=== PATIENT | female | born 1930 | race Caucasian/White ===

== ENCOUNTER 2017-02-12 15:28 | Inpatient (IN) | payer MEDICARE ==
[2017-02-12] MEDS ORDERED: Docusate 100 MG CAP PO PRN (17:36)
[2017-02-12] MEDS ORDERED: Milk Of Magnesia 30 ML UDCUP PO PRN (17:36)
[2017-02-12] MEDS ORDERED: PROVENTIL INHALER 6.7 G (200 INHALATIONS) INH PRN (17:36)
[2017-02-12] MEDS ORDERED: Guaifenesin DM 100-10/5 ML UDCUP PO PRN (17:41)
[2017-02-12] MEDS ORDERED: Ondansetron ODT 4 MG TAB PO PRN (17:41)
[2017-02-12] MEDS ORDERED: DENOSUMAB 60 MG SQ SCH (17:45)
[2017-02-12] MEDS ORDERED: Mometasone/Formoterol 60 PUFF AER INH SCH (18:30)
[2017-02-12] MEDS ORDERED: Albuterol Sulfate 2.5 mg/3 ml Neb ONE (19:14)
[2017-02-12 19:55] LABS: Blood, Urine Negative (Negative); Glucose, Urine (Dipstick) Negative (Negative); Leukocyte Negative (Negative); Nitrite Negative (Negative); Protein, Urine (Dipstick) 30 mg/dL (Neg-Trace); Urobilinogen 0.2 mg/dL (0.2-1.0); pH, Urine 5.5 (5.0-9.0)
[2017-02-12 20:01] LABS: Clarity SL HAZY (Clear); Specific Gravity, Urine 1.027 (1.002-1.036)
[2017-02-12 20:02] LABS: Bacteria/HPF Rare-Few HPF (None Seen); Hyaline Casts/LPF 0-3 HYALINE CAST LPF (0-3 Hyaline); Icto Negative (Negative); RBC/HPF 0-3 HPF (0-3)
[2017-02-12] MEDS: Famotidine 20 MG TAB PO SCH (20:44)
[2017-02-12] MEDS: Apixaban 5 MG TAB PO SCH (20:44)
[2017-02-12] MEDS: Latanoprost 0.005% Ophth Soln 2.5 ml Bottle EA EYE SCH (20:51)
[2017-02-12] MEDS ORDERED: Furosemide 20 MG TAB PO SCH (21:00)
[2017-02-12] MEDS: Acetaminophen 325 MG TAB PO PRN (21:32)
--- NOTE | 2017-02-13 00:46 | HP ---
DATE OF ADMISSION: 02/12/2017 HISTORY OF PRESENT ILLNESS: The patient is an 86-year-old white female with severe COPD, has had mu ltiple episodes of increasing weakness and falling down spells. She got much weaker and eventually was evaluated by primary care doctor and felt that she would benefit from physical therapy and occup ational therapy and in an intensive inpatient setting. PAST MEDICAL HISTORY: Positive for atrial fibrillation, hypertension, COPD, osteoporosis, arthritis , coronary artery disease, congestive heart failure, pain management, and generalized weakness. PAST SURGICAL HISTORY: Positive for right hip fracture about 25 years ago and then recently left hi p ORIF. The patient also had kyphoplasty x3. FAMILY HISTORY: Reveals that patient's father of pneumonia and the patient's mother at ag e 89 of a stroke. She had one brother that has cancer. She has no sisters. She has 2 daughters th at are healthy. Family history is positive for heart disease, hypertension, and diabetes. SOCIAL HISTORY: Reveals the patient does not smoke, does not drink alcohol, does not do any drugs. She exercises regularly. She lives with her and had secondary smoke. She is . She is retired. REVIEW OF SYSTEMS: Reveals patient has good appetite, although she is thin. She has increasing fat igue and malaise, but denies fever, chills, night sweats, and pain. She complains of dry skin. THAD NT: Reveals that the patient did state that she has decreased hearing and decreased vision. She de nies any headaches or vertigo. Respiratory ahumada, the patient complains of shortness of breath and d yspnea on exertion. She has no significant cough. She has no significant wheezing. She denies any chest pain, syncope, edema, or palpitations. She does have atrial fibrillation, but she rarely fee ls that. She denies any nausea, vomiting, indigestion, or diarrhea. She does have constipation. S he does complain of arthralgias, mainly in her back and her hands and sometimes she is very achy. S he does have some stress in the past and has had some anxiousness. She does bruises very easily and has multiple bruises all over her body from her falls. PRESENT MEDICATIONS: Include the followin. Eliquis 2.5 mg b.i.d. 2. Diltiazem 240 mg daily. 3. Lasix 20 mg b.i.d. 4. Klor-Con 10 mg b.i.d. 5. Celebrex 200 mg daily. 6. Cymbalta 30 mg daily. 7. Prolia 60 mg subcu every 6 months. 8. Travatan 1 drop in each eye every evening. 9. Tramadol 50 one half or one every 4 hours p.r.n. 10. Symbicort 160/4.5 two puffs b.i.d. 11. ProAir 2 puffs every 6 hours p.r.n. 12. MiraLax every day. 13. Vitamin D every day. 14. Multivitamin daily. 15. Caltrate plus vitamin D daily. ALLERGIES: The patient is allergic to PREGABALIN. PHYSICAL EXAMINATION: GENERAL: This is a well-developed, well-nourished, very pleasant white female, in no apparent distr ess at this time. VITAL SIGNS: Blood pressure on admission was 165/86, pulse 88, respirations 22, temperature 96.6. Her weight is 106 pounds. HEENT: Reveals normocephalic, nontraumatic cranium. Pupils are equally round and reactive. Extrao cular movements are intact. Nose and throat are slightly dry. NECK: Supple without masses, nodes, or bruits. LUNGS: Chest is clear, but distant. No rales, no rhonchi, no wheezes are heard. No crackles are h eard. HEART: Reveals an irregularly irregular rate and rhythm without murmurs, gallops, or rubs. ABDOMEN: Soft, nontender, without organomegaly. Normal bowel sounds are noted. No rebound or guar ding is noted. GENITOURINARY EXAM: Deferred. EXTREMITIES: Reveal generalized weakness with very poor balance and multiple bruising and scarring on her upper and lower extremities. NEUROLOGIC: The patient is intact. The patient is oriented to person, place, time, and situation. Her mood and affect are normal. ASSESSMENT: 1. Atrial fibrillation. 2. Chronic obstructive pulmonary disease. 3. Hypertension. 4. Osteoporosis. 5. Arthritis. 6. Coronary artery disease. 7. History of congestive heart failure. 8. Pain management. 9. Osteoporosis. PLAN: 1. Continue to follow the patient's rate, make sure she stays rate controlled. 2. Follow the patient's respiratory status. 3. Continue to follow the patient's blood pressure closely. 4. Continue physical therapy and occupational therapy. 5. Continue DVT and stress ulcer prophylaxis. 6. Continue decubitus precautions.
[2017-02-13] MEDS: traMADol HCl 50 MG TAB PO PRN ×3 (04:01→18:32)
[2017-02-13 05:11] LABS: #Monocytes 1.6 thou/uL (0.11-0.59); %Basophils 0.3 % (0.0-1.0); %Lymphocytes 6.7 % (21.0-51.0); %Monocytes 11.1 % (0.0-10.0); %Neutrophils 81.9 % (42.0-75.0); Hemoglobin 11.6 g/dL (12.0-16.0); Mean Corpuscular HGB CONC 33.6 g/dL (32.0-36.0); Mean Corpuscular Hemoglobin 32.7 pg (27.0-31.0); Mean Corpuscular Volume 97.2 fl (81.0-99.0); Mean Platelet Volume 6.7 fL (7.4-10.4); Platelet Count 276 thou/uL (130-400); RBC Distribution Width 14.2 % (11.5-14.5); Red Blood Cell (RBC) Count 3.55 mill/uL (4.20-5.40); White Blood Cell (WBC) Count 14.6 thou/uL (4.8-10.8)
[2017-02-13 05:31] LABS: ALT (SGPT) 38 U/L (8-55); AST (SGOT) 45 U/L (5-34); Albumin 3.6 g/dL (3.4-4.8); Alkaline Phosphatase 67 U/L (40-150); Anion Gap 14 mmol/L (10-20); BUN (Urea Nitrogen) 23 mg/dL (9.8-20.1); Bilirubin, Total 0.8 mg/dL (0.2-1.2); Calc. Creatinine Clearance 31 mL/min (70-130); Calcium 8.3 mg/dL (7.8-10.44); Carbon Dioxide 32 mmol/L (23-31); Chloride 94 mmol/L (98-107); Estimated GFR-MDRD 56; Globulin 3.1 g/dL (2.4-3.5); Glucose 103 mg/dL (83-110); Potassium 3.9 mmol/L (3.5-5.1); Protein, Total 6.7 g/dL (6.0-8.3); Sodium 136 mmol/L (136-145)
[2017-02-13] MEDS: Mometasone/Formoterol 60 PUFF AER INH SCH ×2 (06:14→18:18)
[2017-02-13] MEDS: Furosemide 20 MG TAB PO SCH ×2 (06:14→13:03)
[2017-02-13] MEDS ORDERED: Mometasone/Formoterol 60 PUFF AER INH SCH (06:30)
[2017-02-13] MEDS: CeleCOXIB 100 MG CAP PO SCH (08:08)
[2017-02-13] MEDS: Potassium Chloride 10 MEQ TAB PO SCH ×2 (08:08→16:54)
[2017-02-13] MEDS: Apixaban 5 MG TAB PO SCH ×2 (08:10→21:15)
[2017-02-13] MEDS: Multivitamin W/ Minerals 1 TAB PO SCH (08:10)
[2017-02-13] MEDS: Calcium Carbonate + Vit D 1 TAB PO SCH (08:10)
[2017-02-13] MEDS: Famotidine 20 MG TAB PO SCH ×2 (08:11→21:15)
[2017-02-13] MEDS: Acetaminophen 325 MG TAB PO PRN (13:02)
[2017-02-13] MEDS: Polyethylene Glycol 3350 17 GM Packet PO PRN (13:03)
[2017-02-13] MEDS: Latanoprost 0.005% Ophth Soln 2.5 ml Bottle EA EYE SCH (21:14)
[2017-02-14] MEDS: traMADol HCl 50 MG TAB PO PRN ×3 (01:13→21:13)
--- NOTE | 2017-02-14 01:40 | PRG ---
DATE OF SERVICE: 02/13/2017 HISTORY OF PRESENT ILLNESS: Mrs. Goodman is a very pleasant 86-year-old white female, who has COPD. She has had significant increase in her weakness and has had multiple falling down spells. She carlson s multiple bruises all over. She was seen by primary care doctor and her orthopedist and felt that she would benefit from physical therapy and occupational therapy in the intensive inpatient setting. She was transferred here and arrived here yesterday afternoon and was evaluated. She has had some therapy today and states she is very weak and she still has significant balance problems. She has n o complaints today. PHYSICAL EXAMINATION: VITAL SIGNS: Revealed, blood pressure 120/61, pulse 80-170, respirations 18-20, O2 sat 95 on room a ir, 100% on 2 liters, temperature 96.6. GENERAL: This is a well-developed, well-nourished, pleasant white female in no apparent distress at this time. HEENT: Reveals normocephalic, nontraumatic cranium. Pupils are equally round and reactive. Extrao cular movements intact. Nose and throat are slightly dry. NECK: Supple, without masses, nodes or bruits. LUNGS: Chest is clear, but shallow and distant. No rales, rhonchi or wheezes are heard. No crackl es are heard. HEART: Reveals an irregularly irregular rate and rhythm without murmurs, gallops or rubs. ABDOMEN: Soft, slightly obese, nontender without organomegaly, normal bowel sounds are noted. No r ebound or guarding is noted. GENITOURINARY: Deferred. EXTREMITIES: Generalized weakness. The patient continues to have very poor balance and has multipl e bruising over her upper and lower extremities. NEUROLOGIC: The patient is intact, but she has significant balance problems. She is oriented to pe rson, place, time, and situation. Her mood and affect are still normal. IMPRESSION: 1. Atrial fibrillation. 2. Chronic obstructive pulmonary disease. 3. Hypertension. 4. Osteoporosis. 5. Arthritis. 6. Coronary artery disease. 7. Congestive heart failure. 8. Pain management. 9. Osteoporosis. 10. Generalized weakness. PLAN: 1. Continue to follow the patient's rate, make sure she stays rate controlled. 2. Continue to follow the patient's respiratory status. 3. Follow the patient's blood pressure closely. 4. Continue physical therapy and occupational therapy. 5. Continue DVT and stress ulcer prophylaxis. 6. Continue decubitus precautions.
[2017-02-14] MEDS: Acetaminophen 325 MG TAB PO PRN ×4 (02:57→21:14)
[2017-02-14] MEDS: Furosemide 20 MG TAB PO SCH ×2 (06:13→14:11)
[2017-02-14] MEDS: Mometasone/Formoterol 60 PUFF AER INH SCH ×2 (06:14→17:50)
[2017-02-14] MEDS: Potassium Chloride 10 MEQ TAB PO SCH ×2 (07:43→17:05)
[2017-02-14] MEDS: CeleCOXIB 100 MG CAP PO SCH (08:27)
[2017-02-14] MEDS: Apixaban 5 MG TAB PO SCH ×2 (08:28→19:54)
[2017-02-14] MEDS: Famotidine 20 MG TAB PO SCH ×2 (08:29→19:55)
[2017-02-14] MEDS: Calcium Carbonate + Vit D 1 TAB PO SCH (08:31)
[2017-02-14] MEDS: Multivitamin W/ Minerals 1 TAB PO SCH (08:31)
[2017-02-14] MEDS: Polyethylene Glycol 3350 17 GM Packet PO PRN (11:53)
[2017-02-14 13:04] VITALS: BMI 20.7
[2017-02-14] MEDS ORDERED: Bisacodyl 10 MG SUPP PR PRN (16:59)
--- NOTE | 2017-02-14 17:29 | PRG ---
DATE OF ADMISSION: 02/12/2017 DATE OF PROGRESS NOTE: 02/14/2017 HISTORY OF PRESENT ILLNESS: The patient is an 86-year-old white female that has had increasing weak nesses and multiple falls recently. She also has chronic endstage COPD. She has multiple bruises f rom all her falling. She was seen by her primary care doctor and orthopedist and felt that she woul d benefit from inpatient physical therapy and occupational therapy, so she was transferred to [facility]. Since she has been here, she has been taking pain medications before she got here. She is having some problems with constipation and obstipation. We have tried MiraLax and mi lk of magnesia and that has not helped so far and we will try a Dulcolax suppository and possible en tiffany if needed. The patient has no other complaints except for her abdominal pain from constipation. PHYSICAL EXAMINATION: VITAL SIGNS: Revealed blood pressure is 137/82, pulse 121, respirations 19-20, O2 sat 96% on room a ir. T-max is 97.7. GENERAL: This is a well-developed, well-nourished, very pleasant white female in no apparent distre ss at this time. HEENT: Reveals normocephalic, nontraumatic cranium. Pupils are equally round and reactive. Extrao cular movements intact. Nose and throat are slightly dry. NECK: Supple without masses, nodes or bruits. LUNGS: Chest is shallow and distant breath sounds. No rales, rhonchi or wheezes are heard. No aircraft engine mechanic overhaul ckles are heard. CARDIOVASCULAR: Reveals an irregularly irregular rate and rhythm without murmurs, gallops or rubs. ABDOMEN: Slightly distended, soft, tender all over, but normal bowel sounds are noted, but slow. N o rebound or guarding is noted. Patient has kind of diffuse achiness all over most likely from bein g distended and constipated. : Deferred. EXTREMITIES: Revealed generalized weakness. The patient did walk this morning. Her bruising is sl owly getting better. She has generalized weakness in upper and lower extremities. NEUROLOGIC: The patient is intact, but she continues to have balance problems. She is oriented to person, place, time, and situation. Her mood and affect are normal. IMPRESSION: 1. Atrial fibrillation. 2. Constipation. 3. Chronic obstructive pulmonary disease. 4. Hypertension. 5. Osteoporosis. 6. Arthritis. 7. Coronary artery disease. 8. Congestive heart failure. 9. Pain management. 10. Osteoporosis. 11. Generalized weakness. PLAN: 1. We will continue to follow the patient's heart rate and make sure she stays rate controlled. 2. Follow up patient's respiratory status. 3. We will try Dulcolax suppository along with MiraLax and milk of magnesia. 4. Continue physical therapy and occupational therapy. 5. Continue DVT and stress ulcer prophylaxis. 6. Continue decubitus precautions.
[2017-02-14] MEDS: Milk Of Magnesia 30 ML UDCUP PO SCH (19:54)
[2017-02-14] MEDS: Latanoprost 0.005% Ophth Soln 2.5 ml Bottle EA EYE SCH (19:55)
[2017-02-15] MEDS: Furosemide 20 MG TAB PO SCH ×2 (06:22→14:53)
[2017-02-15] MEDS: Mometasone/Formoterol 60 PUFF AER INH SCH ×2 (06:23→19:08)
[2017-02-15] MEDS: Calcium Carbonate + Vit D 1 TAB PO SCH (08:47)
[2017-02-15] MEDS: Apixaban 5 MG TAB PO SCH ×2 (08:47→20:47)
[2017-02-15] MEDS: CeleCOXIB 100 MG CAP PO SCH (08:47)
[2017-02-15] MEDS: Potassium Chloride 10 MEQ TAB PO SCH ×2 (08:48→17:15)
[2017-02-15] MEDS: Multivitamin W/ Minerals 1 TAB PO SCH (08:48)
[2017-02-15] MEDS: Famotidine 20 MG TAB PO SCH ×2 (08:48→20:47)
[2017-02-15] MEDS: Polyethylene Glycol 3350 17 GM Packet PO PRN (08:49)
--- NOTE | 2017-02-15 10:24 | PRG ---
DATE OF SERVICE: 02/15/2017 SUBJECTIVE: Ms. Goodman is a very pleasant 86-year-old white female that had end-stage COPD and A Fib with Hx of CHF. She has had multiple falls mainly from her weakness and bruising. She was seen by primary care doctor and Orthopedics felt that she would benefit to inpatient physical therapy and occupational therapy. She was transferred to [facility] swing bed. She has been here and seems to be doing fairly well. This morning, they had difficulty getting oxygen saturation. She is a little bit confused this morning. She has been somewhat constipated and obstipated. This morning, she states that someone in the family and thus they are going to have a . I have to check that with her granddaughter Bob. OBJECTIVE: VITAL SIGNS: Today reveal blood pressure 158/94, which is a little high. Last night, it was 139/80. Pulse 100-140 this morning. Respirations 20-24. O2 sat 92%. GENERAL: This is a well-developed, well-nourished, very pleasant white female in no apparent distress at this time. HEENT: Reveals normocephalic, nontraumatic cranium. Pupils equal, round, and reactive. Extraocular movements intact. Nose and throat are slightly dry. NECK: Supple, without masses, nodes or bruits. CHEST: Clear to auscultation. No rales, no rhonchi, no wheezes are heard. Chest sounds are very distant. No crackles were heard this AM. HEART: Reveals a irregularly irregular rate and rhythm. ABDOMEN: Slightly distended, but less tender. Patient complains of diffuse achiness across her shoulders and ribs. GENITOURINARY: Deferred. EXTREMITIES: Reveals generalized weakness. The patient has not had therapy yet this morning. NEUROLOGIC: She is intact, but she continues to have balance problems and this morning seems a little bit confused. IMPRESSION: 1. CHF 2. Atrial fibrillation. 3. Constipation. 4. Chronic obstructive pulmonary disease, end-stage. 5. Hypertension. 6. Osteoporosis. 7. Arthritis. 8. Coronary artery disease. 9. History of congestive heart failure. 10. Pain management. 11. Generalized weakness. 12. Confusion PLAN: 1. Follow for sign's and symptoms of CHF 2. Follow up the patient's respiratory status. 3. Continue physical therapy and occupational therapy. 4. Continue deep venous thrombosis and stress ulcer prophylaxis. 5. Continue decubitus precautions. 6. Urinalysis. 7. Cardiac echo. 8. Follow Rate and rhythm and make sure she stays rate controlled. 9. Will discuss with Grand-daughter and daughter. TIARA
[2017-02-15] MEDS: Acetaminophen 325 MG TAB PO PRN (11:50)
[2017-02-15 12:12] LABS: ALT (SGPT) 32 U/L (8-55); AST (SGOT) 28 U/L (5-34); Albumin 3.4 g/dL (3.4-4.8); Alkaline Phosphatase 87 U/L (40-150); Anion Gap 19 mmol/L (10-20); BUN (Urea Nitrogen) 30 mg/dL (9.8-20.1); Bilirubin, Total 1.2 mg/dL (0.2-1.2); Calc. Creatinine Clearance 29 mL/min (70-130); Calcium 10.7 mg/dL (7.8-10.44); Carbon Dioxide 31 mmol/L (23-31); Chloride 89 mmol/L (98-107); Estimated GFR-MDRD 51; Globulin 3.7 g/dL (2.4-3.5); Glucose 119 mg/dL (83-110); Potassium 4.9 mmol/L (3.5-5.1); Protein, Total 7.1 g/dL (6.0-8.3); Sodium 134 mmol/L (136-145)
[2017-02-15 14:07] LABS: Band 8 % (5-11); Blast 2 % (0-0); Eosinophils 2 % (0-10); Hemoglobin 13.1 g/dL (12.0-16.0); Lymphocytes 9 % (21-51); MDiff Complete? YES; Mean Corpuscular HGB CONC 32.2 g/dL (32.0-36.0); Mean Corpuscular Hemoglobin 31.9 pg (27.0-31.0); Mean Platelet Volume 6.6 fL (7.4-10.4); Monocytes 5 % (0-10); Neutrophil 74 % (42-75); PLT Morphology Comment Appears Adequate; Platelet Count 280 thou/uL (130-400); RBC Distribution Width 15.2 % (11.5-14.5)
--- NOTE | 2017-02-15 17:20 | RAD ---
CHEST ONE VIEW: History: Shortness of breath. Comparison: Chest two views, 2015. FINDINGS: Heart size is enlarged. There are layering effusions bilaterally, slightly increased in size from co mparison exam. Nodular opacities in the right lung apex are similar. There is extensive degenerative disease throughout the thoracic spine with multiple areas of what ap pears to be cement. Old posterolateral left fourth rib fracture. IMPRESSION: Cardiomegaly with effusions and mild pulmonary venous congestion. This is worsened from the 2015 exa m. POS: [facility]
[2017-02-15] MEDS ORDERED: Sodium Chloride 0.9% 20 ML ONE (18:50)
[2017-02-15] MEDS ORDERED: Furosemide 40 MG/4 ML VIAL SLOW IVP SCH (19:15)
[2017-02-15 19:21] LABS: Bilirubin Negative (Negative); Blood, Urine Negative (Negative); Clarity SL HAZY (Clear); Glucose, Urine (Dipstick) Negative (Negative); Leukocyte Negative (Negative); Nitrite Negative (Negative); Protein, Urine (Dipstick) 30 mg/dL (Neg-Trace); Urobilinogen 0.2 mg/dL (0.2-1.0); pH, Urine 5.5 (5.0-9.0)
[2017-02-15] MEDS: Milk Of Magnesia 30 ML UDCUP PO SCH (20:47)
[2017-02-15] MEDS: Latanoprost 0.005% Ophth Soln 2.5 ml Bottle EA EYE SCH (20:48)
[2017-02-15 22:08] LABS: RBC/HPF 0-3 HPF (0-3); Renal Epithelial 0-3 HPF (0-3); Squamous Epithelial 0-3 HPF (0-3); Transitional Epithelial 0-3 HPF (0-3); WBC/HPF 0-3 HPF (0-3)
[2017-02-16 05:18] LABS: Band 5 % (5-11); Hemoglobin 12.9 g/dL (12.0-16.0); Lymphocytes 3 % (21-51); MDiff Complete? YES; Mean Corpuscular HGB CONC 33.2 g/dL (32.0-36.0); Mean Corpuscular Hemoglobin 32.3 pg (27.0-31.0); Mean Corpuscular Volume 97.5 fl (81.0-99.0); Mean Platelet Volume 7.2 fL (7.4-10.4); Monocytes 6 % (0-10); Neutrophil 86 % (42-75); PLT Morphology Comment Appears Adequate; Platelet Count 269 thou/uL (130-400); RBC Distribution Width 14.9 % (11.5-14.5); RBC Morphology Normal; Red Blood Cell (RBC) Count 3.98 mill/uL (4.20-5.40); White Blood Cell (WBC) Count 20.5 thou/uL (4.8-10.8)
[2017-02-16 05:24] LABS: Anion Gap 18 mmol/L (10-20); BUN (Urea Nitrogen) 37 mg/dL (9.8-20.1); Calc. Creatinine Clearance 28 mL/min (70-130); Calcium 9.5 mg/dL (7.8-10.44); Carbon Dioxide 32 mmol/L (23-31); Chloride 89 mmol/L (98-107); Estimated GFR-MDRD 49; Glucose 123 mg/dL (83-110); Potassium 4.8 mmol/L (3.5-5.1); Sodium 134 mmol/L (136-145)
[2017-02-16] MEDS: Furosemide 40 MG TAB PO SCH ×2 (06:19→13:37)
[2017-02-16] MEDS: Mometasone/Formoterol 60 PUFF AER INH SCH ×2 (06:28→18:00)
[2017-02-16] MEDS: Potassium Chloride 10 MEQ TAB PO SCH ×2 (08:27→16:53)
[2017-02-16] MEDS: Apixaban 5 MG TAB PO SCH ×2 (08:27→20:21)
[2017-02-16] MEDS: CeleCOXIB 100 MG CAP PO SCH (08:28)
[2017-02-16] MEDS: Calcium Carbonate + Vit D 1 TAB PO SCH (08:28)
[2017-02-16] MEDS: Famotidine 20 MG TAB PO SCH ×2 (08:29→20:21)
[2017-02-16] MEDS: Multivitamin W/ Minerals 1 TAB PO SCH (08:30)
[2017-02-16] MEDS: Acetaminophen 325 MG TAB PO PRN ×2 (08:30→20:21)
[2017-02-16] MEDS ORDERED: Carvedilol 3.125 MG TAB PO SCH (09:30)
[2017-02-16] MEDS: Carvedilol 3.125 MG TAB PO SCH ×2 (09:59→16:53)
--- NOTE | 2017-02-16 10:34 | PRG ---
DATE OF SERVICE: 02/16/2017 DATE OF ADMISSION: 02/12/2017 HISTORY OF PRESENT ILLNESS: Ms. Goodman is still confused this morning, but little less than yesterday. She does not hear anything this morning yet because she does not have her hearing aids in. They talked with the patient's granddaughter Marissa and Marissa thought she is a little bit more coherent this morning. I did talk with the daughter yesterday and she will be coming up this morning. The patient is presently getting her echocardiogram. We will get Dr. Busby to read it and ir should be available later on today. Patient according to nurses was able to rest a little bit last night, but still is somewhat restless. OBJECTIVE: VITAL SIGNS: This morning reveal blood pressure was 153/73, pulse is 77 this morning, it was 100 earlier this morning. Respirations are 20-24, O2 sat is 93% -97% on 2 to 2-1/2 liters. This morning GENERAL APPEARANCE: This morning on physical exam, this is a well-developed, well-nourished, thin white female, in no apparent distress at this time. She is still slightly confused, but is less so. She is having less respiratory distress this morning. She has no complaints of chest pain. Presently, she is undergoing echocardiogram. She has no significant edema in lower extremities. X-RAY FINDINGS: Chest x-ray yesterday reveals some vascular congestion, so she was given IV 40 Lasix last night with 400 out plus 2 wet diapers. The patient seems to be somewhat clear this morning with less crackles. LABORATORY DATA: This morning reveals her white count was 20,500 which was down from 26,000 the day before. Her hemoglobin is 12.9, hematocrit 38.8. Sodium is 134, potassium 4.8 with chloride of 89, CO2 of 32, BUN is 37, and creatinine is 1.06. GFR is 49. Sugar this morning was 123. We did repeat another urinalysis yesterday, which was unremarkable. Chest x-ray did not reveal any infectious process is going on. ASSESSMENT: 1. Congestive heart failure, acute exacerbation. 2. Atrial fibrillation. 3. History of chronic obstructive pulmonary disease, end-stage. 4. Hypertension. 5. Coronary artery disease. 6. Generalized weakness. 7. Confusion. 8. Arthritis. 9. Osteoporosis. 10. Atrial fibrillation. 11. Constipation. 12. Glaucoma. PLAN: 1. Continue to treat her congestive heart failure. We have instituted Lasix 40 b.i.d. and will continue have to follow her BUN and creatinine for that. Also, started a low dose of carvedilol to make sure she stays rate control and hopefully increase her cardiac output. 2. Continue to follow the patient's respiratory status closely. 3. Continue physical therapy and occupational therapy. 4. Continue DVT and stress ulcer prophylaxis. 5. Continue decubitus precautions. 6. Urinalysis, unremarkable. 7. Awaiting results from the echo. 8. Continue to follow the patient's rate and rhythm. Make sure she stays rate controlled, were discussed with the daughter and granddaughter this afternoon. Continue to follow her closely. 9. Hopefully, get her echocardiogram back later this afternoon. TIARA
[2017-02-16 10:57] LABS: CKMB 3.4 ng/mL (0-6.6); Troponin I 0.018 ng/mL (< 0.028)
[2017-02-16] MEDS: Milk Of Magnesia 30 ML UDCUP PO SCH (20:21)
[2017-02-16] MEDS: Latanoprost 0.005% Ophth Soln 2.5 ml Bottle EA EYE SCH (20:30)
[2017-02-17 05:51] LABS: Anion Gap 18 mmol/L (10-20); BUN (Urea Nitrogen) 39 mg/dL (9.8-20.1); Calc. Creatinine Clearance 33 mL/min (70-130); Calcium 9.3 mg/dL (7.8-10.44); Carbon Dioxide 32 mmol/L (23-31); Chloride 90 mmol/L (98-107); Estimated GFR-MDRD 59; Glucose 121 mg/dL (83-110); Potassium 4.3 mmol/L (3.5-5.1); Sodium 136 mmol/L (136-145)
[2017-02-17] MEDS: Furosemide 40 MG TAB PO SCH (06:10)
[2017-02-17 06:16] LABS: Band 45 % (5-11); Eosinophils 1 % (0-10); Hemoglobin 12.8 g/dL (12.0-16.0); Lymphocytes 5 % (21-51); MDiff Complete? YES; Mean Corpuscular HGB CONC 32.6 g/dL (32.0-36.0); Mean Corpuscular Hemoglobin 31.1 pg (27.0-31.0); Mean Corpuscular Volume 95.6 fl (81.0-99.0); Mean Platelet Volume 6.6 fL (7.4-10.4); Monocytes 1 % (0-10); Neutrophil 48 % (42-75); PLT Morphology Comment Appears Adequate; Platelet Count 217 thou/uL (130-400); RBC Distribution Width 14.6 % (11.5-14.5); RBC Morphology Normal; Red Blood Cell (RBC) Count 4.12 mill/uL (4.20-5.40)
[2017-02-17] MEDS: Mometasone/Formoterol 60 PUFF AER INH SCH (06:30)
[2017-02-17 07:03] VITALS: BP 130/76
[2017-02-17] MEDS: Carvedilol 3.125 MG TAB PO SCH (07:49)
[2017-02-17] MEDS: Potassium Chloride 10 MEQ TAB PO SCH (07:50)
[2017-02-17] MEDS: CeleCOXIB 100 MG CAP PO SCH (08:33)
[2017-02-17] MEDS: Famotidine 20 MG TAB PO SCH (08:33)
[2017-02-17] MEDS: Multivitamin W/ Minerals 1 TAB PO SCH (08:33)
[2017-02-17] MEDS: Calcium Carbonate + Vit D 1 TAB PO SCH (08:34)
[2017-02-17] MEDS: Apixaban 5 MG TAB PO SCH (08:34)
[2017-02-17 09:58] VITALS: TEMP 97
--- NOTE | 2017-02-17 19:24 | DIS ---
DATE OF ADMISSION: 02/12/2017 DATE OF DISCHARGE: Transferred to swing bed, 02/17/2017 HOSPITAL COURSE: Ms. Clover Goodman is a very pleasant 86-year-old white female with severe CO PD, extreme weakness and multiple falls. She would brought here and was found to have atrial fibril lation, COPD, hypertension with hypotension, generalized weakness, osteoporosis, arthritis, CAD and CHF. She was admitted to the hospital, actually was stabilized. She has had significant decline si nce she got here and is much improved now. She did have an echocardiogram, which revealed mildly enlarged right ventricle cavity, moderately di lated left atrium, moderate to severe tricuspid regurg and moderate to severe pulmonary hypertension . Ejection fraction was 55% to 60%. This was read by Dr. Busby. The patient is much improved today and we will transfer her to swing bed today. PHYSICAL EXAMINATION: GENERAL: This is a well-developed, well-nourished, very pleasant white female, in no apparent distr ess at this time. HEENT: Reveals normocephalic, nontraumatic cranium. Pupils are equally round and reactive. Extrao cular movements intact. Nose and throat are slightly dry. The patient is able to speak words today and is able to make sense and answer questions. She is much improved over yesterday. NECK: Supple, without masses, nodes or bruits. No jugular venous distention is noted today. CHEST: Reveals some crackles and rales on the right side more so than the left side, she has been l osmel on her right side. No cough, cold or congestion is noted today. HEART: Reveals an irregularly irregular rate and rhythm without murmurs, gallops or rubs. ABDOMEN: Soft and nontender, without organomegaly. Normal bowel sounds are noted. No rebound or g uarding is noted. GENITOURINARY: Deferred. EXTREMITIES: Reveals the patient continued to have right shoulder pain. She has generalized weakne ss. NEUROLOGIC: She is sitting up in a wheelchair and awake, alert and oriented x2. Neurologically, sh e is intact today, much more alert, oriented and much less confused. IMPRESSION: 1. Congestive heart failure, much improved. 2. Atrial fibrillation, chronic. 3. Constipation. 4. Chronic obstructive pulmonary disease, end-stage. 5. Hypertension. 6. Osteoarthritis. 7. Arthritis. 8. Coronary artery disease. 9. Pain management. 10. Generalized weakness. 11. Confusion. PLAN: 1. We will continue the pain medication. 2. We will discharge her from acute care and move her to swing bed. 3. Continue to watch for signs and symptoms of congestive heart failure. 4. Get her constipation under control. 5. Continue to watch her respiratory status. 6. Continue physical therapy. 7. Continue occupational therapy. 8. Continue speech therapy. 9. Continue DVT and stress ulcer prophylaxes. 10. Continue decubitus precautions. 11. Urinalysis. 12. Continue to follow the patient's rate and rhythm to make sure she stays rate controlled. 13. I did discuss at length with the daughter and granddaughter her care. TRANSFER MEDICATIONS: Include the followin. Tylenol 650 p.r.n. 2. Albuterol handheld nebulizers q.4 hours p.r.n. 3. Eliquis 2.5 b.i.d. 4. Dulcolax suppository p.r.n. 5. Calcium plus vitamin D 600 plus D daily. 6. Coreg 3.125 daily. 7. Celebrex 200 daily. 8. Diltiazem 240 mg daily. 9. Colace 100 mg b.i.d. 10. Cymbalta 30 mg daily. 11. Pepcid 20 b.i.d. 12. Lasix 40 b.i.d. 13. Guaifenesin p.r.n. cough. 14. Theragran M. 15. Latanoprost ophthalmic one drop in each eye at bedtime. 16. Milk of Magnesia p.r.n. 17. Dulera four puffs b.i.d. 18. Zofran p.r.n. 19. MiraLax daily. 20. Potassium chloride 10 b.i.d.
--- NOTE | 2017-02-23 07:25 | PQF ---
MORENA LEE C. HENRY MD [id number] CLINICAL DOCUMENTATION CLARIFICATION FORM: POST DISCHARGE Addendum to original discharge summary date: ____ Late entry note date: __ DATE: 02/23/2017 The following CLINICAL INDICATORS - SIGNS / SYMPTOMS are present in the medical record: CONGESTIVE HEART FAILURE, ACUTE EXACERBATION EJECTION FRACTION 55% TO 60% RISKS: CAD CHRONIC ATRIAL FIRBRILLATION COPD TREATMENTS: IV 40 LASIX Please provide a response below if a more specific term indicating a diagnosis and/or acuity level for this condition can be identified. Please exercise your independent, professional judgment in responding to the clarification form. Clinical indicators are provided on the bottom of this form for your review. Thank you. [ ] Present on Admission (POA): [ ] Yes [ ] No [ ] Unable to determine ACUTE HEART FAILUREOTHER ETIOLOGIES OF HEART FAILURE [ ] Acute Systolic Heart Failure [ ] Heart Failure Due To Valvular Disease [ ] Acute Diastolic Heart Failure [ ] Right Heart Failure / Acute Cor Pulmonale [ ] Acute Systolic and Diastolic Heart Failure[ ] Right Heart Failure / Chronic Cor Pulmonale ACUTE ON CHRONIC HEART FAILURE [ ] Acute On Chronic Systolic Heart Failure [ ] Acute On Chronic Diastolic Heart Failure [ ] Acute On Chronic Systolic and Diastolic Heart Failure [ ] Does not apply to this patient [ ] Unable to determine [ ] Other diagnosis: _ Physician/Provider Signature Date Time (This form is maintained as a part of the permanent medical record) 2014 [employer] All Rights Reserved Deonna Christensen CCS, [employer] H[employer] MANAGER-H [email or web address]
== END 2017-02-17 10:12 | disposition swing bed (61) | DRG 293 ==
LOC: NAV ACUTE 15:28 → UNDOADMIN 15:28
PROVIDERS: ADMIT Family Medicine; ATTEND Family Medicine
DX: I11.0 Hypertensive heart disease with heart failure (principal); I95.9 Hypotension, unspecified; I27.2 Other secondary pulmonary hypertension; J44.9 Chronic obstructive pulmonary disease, unspecified; I48.2 Chronic atrial fibrillation; I07.1 Rheumatic tricuspid insufficiency; Z79.01 Long term (current) use of anticoagulants; I50.9 Heart failure, unspecified; M81.0 Age-related osteoporosis without current pathological fracture; I25.10 Atherosclerotic heart disease of native coronary artery without angina pectoris; M19.90 Unspecified osteoarthritis, unspecified site; Z77.22 Contact with and (suspected) exposure to environmental tobacco smoke (acute) (chronic); H40.9 Unspecified glaucoma; K59.00 Constipation, unspecified; Z91.81 History of falling
CPT/HCPCS: 36415; 71010; 80048; 80053; 81001; 82553; 83880; 84484; 85025; 87086; 94640; 94664; A4216; G0283-GP; G8978-GP-CJ; G8979-GP-CI; G8996-GN-CJ; G8997-GN-CI; J1940; J7611; J7620

== ENCOUNTER 2017-02-17 10:20 | Inpatient (IN) | payer MEDICARE ==
[2017-02-17] MEDS ORDERED: Ondansetron ODT 4 MG TAB PO PRN (12:53)
[2017-02-17] MEDS ORDERED: Milk Of Magnesia 30 ML UDCUP PO PRN (12:53)
[2017-02-17] MEDS ORDERED: Bisacodyl 10 MG SUPP PR PRN (12:53)
[2017-02-17] MEDS ORDERED: Acetaminophen 325 MG TAB PO PRN (12:53)
[2017-02-17] MEDS ORDERED: Guaifenesin DM 100-10/5 ML UDCUP PO PRN (12:53)
[2017-02-17] MEDS ORDERED: Fleet Enema 133 ML BOT PR PRN (15:56)
[2017-02-17] MEDS ORDERED: Potassium Chloride 10 MEQ TAB PO SCH (17:00)
[2017-02-17] MEDS ORDERED: Carvedilol 3.125 MG TAB PO SCH (17:00)
--- NOTE | 2017-02-17 18:33 | RAD ---
ACUTE ABDOMINAL SERIES INCLUDING FRONTAL VIEW CHEST AND TWO VIEW ABDOMEN 02/17/17 CLINICAL HISTORY: Abdominal distention. FINDINGS: Bilateral pleural effusion with adjacent atelectasis and/or pneumonia present. There is vascular con gestion and enlargement of the cardiac silhouette. 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 Postoperative changes of the degenerative and scoliotic spine noted. Partially imaged bilateral hip hardware. IMPRESSION: 1. Bibasilar opacities related to pleural fluid and consolidation. 2. Diffuse air filled bowel of the abdomen and pelvis, as above. POS: [facility]
[2017-02-17 20:53] VITALS: BP 125/78; TEMP 97.7
[2017-02-17] MEDS: Simethicone Chewable 80 MG TAB PO SCH (21:00)
[2017-02-17] MEDS ORDERED: Docusate 100 MG CAP PO SCH (21:00)
[2017-02-17] MEDS ORDERED: Latanoprost 0.005% Ophth Soln 2.5 ml Bottle EA EYE SCH (21:00)
[2017-02-17] MEDS ORDERED: Apixaban 5 MG TAB PO SCH (21:00)
[2017-02-17] MEDS ORDERED: Famotidine 20 MG TAB PO SCH (21:00)
[2017-02-17] MEDS ORDERED: Furosemide 20 MG TAB PO SCH (21:00)
[2017-02-17] MEDS ORDERED: Non-Formulary Item 1 EACH (Travoprost [Travatan Z] 1 DROP) EA EYE SCH (21:00)
[2017-02-18 05:21] VITALS: BMI 20.4
[2017-02-18] MEDS: Simethicone Chewable 80 MG TAB PO SCH (05:42)
[2017-02-18 05:46] LABS: Anion Gap 24 mmol/L (10-20)
[2017-02-18 05:50] LABS: BUN (Urea Nitrogen) 65 mg/dL (9.8-20.1); Calc. Creatinine Clearance 15 mL/min (70-130); Calcium 9.3 mg/dL (7.8-10.44); Carbon Dioxide 29 mmol/L (23-31); Chloride 92 mmol/L (98-107); Estimated GFR-MDRD 24; Glucose 43 mg/dL (83-110); Potassium 6.2 mmol/L (3.5-5.1); Sodium 139 mmol/L (136-145)
[2017-02-18] MEDS ORDERED: Dextrose 50% Abboject 50 ML SYRINGE ONE (06:07)
[2017-02-18 06:25] LABS: Hemoglobin 13.9 g/dL (12.0-16.0); MDiff Complete? YES; Mean Corpuscular HGB CONC 31.7 g/dL (32.0-36.0); Mean Corpuscular Hemoglobin 31.3 pg (27.0-31.0); Mean Corpuscular Volume 98.7 fl (81.0-99.0); Mean Platelet Volume 7.9 fL (7.4-10.4); Platelet Count 122 thou/uL (130-400); RBC Distribution Width 15.5 % (11.5-14.5); Red Blood Cell (RBC) Count 4.46 mill/uL (4.20-5.40)
[2017-02-18 06:26] LABS: Band 22 % (5-11); Lymphocytes 4 % (21-51); Monocytes 4 % (0-10); Neutrophil 70 % (42-75); PLT Morphology Comment Appears Adequate
[2017-02-18 06:29] LABS: White Blood Cell (WBC) Count 8.4 thou/uL (4.8-10.8)
[2017-02-18] MEDS ORDERED: Non-Formulary Item 1 EACH (Celecoxib [Celebrex] 200 MG) PO SCH (09:00)
[2017-02-18] MEDS ORDERED: Multivitamin W/ Minerals 1 TAB PO SCH (09:00)
[2017-02-18] MEDS ORDERED: CeleCOXIB 100 MG CAP PO SCH (09:00)
[2017-02-18] MEDS ORDERED: Polyethylene Glycol 3350 17 GM Packet PO SCH (09:00)
[2017-02-18] MEDS ORDERED: Calcium Carbonate + Vit D 1 TAB PO SCH (09:00)
[2017-02-18] MEDS ORDERED: DULOXETINE HCL 30 MG PO SCH (09:00)
--- NOTE | 2017-02-18 20:54 | SS ---
DATE OF ADMISSION: 02/17/2017 DATE OF TRANSFER: 02/18/2017 This is a short stay transfer note. HISTORY OF PRESENT ILLNESS: The patient is an 86-year-old white female initially admitted to [facility] with a history of severe COPD, congestive heart failure and generalized weakness w ith multiple falls. She was basically admitted for treatment of her COPD and regulation of her CHF along with physical therapy and occupational therapy to increase her strength and stamina. She had an exacerbation of her congestive heart failure, was treated with diuretics and actually responded v barrett well. BNP went from 800s down to the 400s. She was stabilized and actually doing very well and was transferred to swing bed for continued physical therapy and occupational therapy. PAST MEDICAL HISTORY: Relevant for, 1. Chronic atrial fib. 2. COPD, end-stage. 3. Hypertension. 4. Osteoporosis. 5. Coronary artery disease. 6. Congestive heart failure. 7. Arthritis. 8. Generalized weakness. 9. Pain management. 10. New diagnosis of pulmonary hypertension. PAST SURGICAL HISTORY: Reveals the patient had right and left hips done, and she has kyphoplasty x3 . FAMILY HISTORY: Reveals patient's father with pneumonia. Patient's mother at age 89 of a stroke. The patient has one brother who is alive with cancer. Has 2 daughters that are healthy. Family history is positive for heart disease, hypertension, diabetes. SOCIAL HISTORY: Reveals the patient is . 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 She had no sign ificant smoking, but has secondary smoke from her . She never drank, never did drugs, did e xercise regularly, was very active and working on and keeping her ranch going. REVIEW OF SYSTEMS: Revealed that the patient had poor appetite, increasing malaise and fatigue, but denies fever or chills. She had poor hearing and poor vision, but no headache, vertigo or signific ant allergies. Respiratory status reveals she is always pretty much short of breath and dyspnea on exertion. But, always denied chest pain although at time she would have some tachycardia. Her hear t doctor said that state that she had a poor heart rate with her congestive heart failure even thoug h ejection fraction was 50-60%. She had dilated right atrium and right ventricle and pulmonary hype rtension on her most recent echocardiogram. GI ahumada, she was somewhat constipated, had increase gas . She complains more of arthralgias in both her shoulders and occasionally some back pain. She had no significant anxiety, depression, but a little stress with her illnesses. She has quite a bit of bruising from her multiple falls. PHYSICAL EXAMINATION: GENERAL: This is a well-developed, well-nourished, very pleasant white female who is much more aler t on transferred to the swing bed. She is oriented to person and place. Patient is oriented x2. S he was able to speak words on admission. HEENT: Reveals normocephalic, nontraumatic cranium. Pupils are equally round and reactive. Nose a nd throat are slightly dry. NECK: Supple, without masses, nodes or bruits. No jugular venous distention is noted. CHEST: Reveals crackles and rales bilaterally, but improved since admission. No significant cough was noted. HEART: Reveals an irregularly irregular rate and rhythm without murmurs, gallops or rubs. ABDOMEN: Slightly distended and more gas, but she states she feels like she is constipated. We lubna l check her for impaction and use a [employer] if needed. No rebound or guarding was noted. GENITOURINARY: Deferred. EXTREMITIES: Revealed no clubbing, cyanosis, and no edema is noted at this time. The patient has s ignificant weakness sitting up in a wheelchair on transfer to swing bed. LABORATORY: BNP on transfer was 694. She typically ranges between 400s and 800s. White count is 1 1,000, down from 26,000, hemoglobin is 12.8, hematocrit is 39.4. Her electrolytes are significant f or creatinine of 0.90. IMPRESSION: 1. Chronic atrial fibrillation. 2. Acute exacerbation of her congestive heart failure, much improved. 3. End-stage chronic obstructive pulmonary disease. 4. Hypertension. 5. Pulmonary hypertension. 6. Coronary artery disease. 7. Osteoporosis. 8. Arthritis. 9. Pain management. PLAN: The patient will be admitted for physical therapy and occupational therapy and also has some speech therapy since she at times coughs little bit with her thin liquids. We will encourage her to eat better. We will continue to watch her electrolytes and BNP daily. We will continue to follow her congestive heart failure, pulmonary hypertension and her respiratory status.
== END 2017-02-18 06:35 | disposition short-term general hospital (02) | DRG 948 ==
LOC: NAV ACUTE 10:20
PROVIDERS: ADMIT Family Medicine; ATTEND Family Medicine
DX: R53.1 Weakness (principal); I27.2 Other secondary pulmonary hypertension; I11.0 Hypertensive heart disease with heart failure; I50.9 Heart failure, unspecified; J44.9 Chronic obstructive pulmonary disease, unspecified; I48.2 Chronic atrial fibrillation; I25.10 Atherosclerotic heart disease of native coronary artery without angina pectoris; M81.0 Age-related osteoporosis without current pathological fracture; M19.90 Unspecified osteoarthritis, unspecified site; Z91.81 History of falling
CPT/HCPCS: 36416; 74022; 80048; 83880; 85025; J7620

== ENCOUNTER → 2017-02-18 | Emergency (ER) | payer MEDICARE ==
[~2017-02-18] MED LIST: EPINEPHrine 1 MG/10 ML Abboject SYRINGE ONE; Norepinephrine 8 MG/0.9% NS 250 ML ONE; Sodium Chloride 0.9% 500 ML ONE
[2017-02-18 07:32] LABS: CKMB 1.6 ng/mL (0-6.6)
--- NOTE | 2017-02-18 20:59 | DS ---
DATE OF ADMISSION: 02/17/2017 DATE OF : 02/18/2017 HOSPITAL COURSE: Ms. Goodman is an 86-year-old white female with CHF, severe COPD, chronic atrial f ib, hypertension, pulmonary hypertension, generalized weakness, arthritis, and coronary artery disea se. The patient was doing well, but in the middle of the night approximately 2-3 o'clock awakened with s ome shortness of breath. She was given a breathing treatment. She was somewhat tachycardic at that time in the 115s. She calmed down her oxygen saturation increased and her pulse decreased into the 70s and 80s. This morning lab was drawn and then proximally in the 5 o'clock range she started hav ing a little bit of difficulty breathing. Her labs came back with the following white count 8400, h emoglobin 13.9, hematocrit 44.0, platelet count 122,000. Her sodium was 132, but her potassium was significantly elevated over yesterday at 6.2 with a BUN of 65 and creatinine, which has gone from 0.9 to 1.95. GFR decreased down to 24, glucose was 43. Repeated [id number] glucose went up to 87, but the patient's BNP went from 600-1761. The patient began to have some respiratory dis tress, but did not complain of chest pain. She has become much more unresponsive. She was transfer red down to the ER and preparations of transferring her over to [place] to [facility]. She was noted on the ER that she was no code. I did discuss and called the ER physician about her impending transfer. While discussing with her, she coded. It was noted that she had a DNR. She gave her some epinephrine and put her on nonrebreather bag. S he did not respond well and eventually . Approximately 7:30 I do not have exact time of and pronouncement. The patient's heart beat st opped. She stopped respirations. She had no pupillary reflex and she was pronounced . I met with the family in the ER and they made arrangements for [place] home. They taken the body and transfer her back to [place], [place]. ASSESSMENT: 1. Acute on chronic congestive heart failure. 2. Chronic atrial fibrillation. 3. Pulmonary hypertension. 4. End-stage chronic obstructive pulmonary disease. 5. Generalized weakness.
== END ==
LOC: NAV ERS 06:32
DX: I46.9 Cardiac arrest, cause unspecified (principal)
CPT/HCPCS: 82553; 84484; 93005; 94760; 96365; 96375; J0171; J7050